=== PATIENT | male | born 1955 | race Caucasian/White ===

== ENCOUNTER → 2019-11-30 10:40 | Outpatient (BNVA) | payer BC, SELFPAY | PROVIDERS: Family Provider Family Medicine; PCP Family Medicine; Referring Provider Internal Medicine Rheumatology; Visit Provider Internal Medicine Rheumatology | DX: M05.79 Rheumatoid arthritis with rheumatoid factor of multiple sites without organ or systems involvement (principal); M10.9 Gout, unspecified; L40.0 Psoriasis vulgaris; Z79.899 Other long term (current) drug therapy; K75.81 Nonalcoholic steatohepatitis (NASH); J84.9 Interstitial pulmonary disease, unspecified; Z87.891 Personal history of nicotine dependence; Z79.52 Long term (current) use of systemic steroids | CPT/HCPCS: 99213 ==